=== PATIENT | female | born 1955 | race African-American/Black ===

== ENCOUNTER 2017-03-17 19:46 | Emergency (ER) | payer OTHER ==
[2015-07-03 17:03] VITALS: BP 150/78
[~2017-03-17] VITALS: Ht 157.5 cm; Wt 91.6 kg
[~2017-03-17 19:46] MED LIST: AMLO10TA2 PO; ASPI-618 PO; BACL10TA PO; METF500T4 PO; [UNRECOGNIZED DRUG - CODE] MC
[2017-03-17] MEDS ORDERED: CYCL10TA2 PO (20:08)
[2017-03-17] MEDS ORDERED: NAPR500T PO (20:08)
--- NOTE | 2017-03-17 20:08 | PHYS DOC ---
Past Medical History Past Medical History: Diabetes-Type II, Hypertension Past Surgical History: Other Additional Past Surgical Histo: colon, unknown gi Alcohol Use: None Drug Use: None Adult General Chief Complaint Chief Complaint: BACK INJURY [facility] HPI Patient is a 61 year old [female presents to the emergency department with complaints of right lower back pain. Patient states she fell one week ago and was actually doing very well for today after preparing Thanksgiving food and standing on her feet she had pain in the right lower back. Pain does not radiate. She's had no loss of bowel or bladder control, no urinary symptoms. No loss function lower extremity's. She has used no mztz-asl-ommilub medications for symptom management. Review of Systems Review of Systems Constitutional: Denies fever or chills [] Eyes: Denies change in visual acuity, redness, or eye pain [] HENT: Denies nasal congestion or sore throat [] Respiratory: Denies cough or shortness of breath [] Cardiovascular: No additional information not addressed in HPI [] GI: Denies abdominal pain, nausea, vomiting, bloody stools or diarrhea [] : Denies dysuria or hematuria [] Musculoskeletal: Low back pain Integument: Denies rash or skin lesions [] Neurologic: Denies headache, focal weakness or sensory changes [] Endocrine: Denies polyuria or polydipsia [] All other systems were reviewed and found to be within normal limits, except as documented in this note. Allergies Allergies Allergies Coded Allergies Type Severity Reaction Last Updated Verified acetaminophen Allergy Intermediate 06/24/15 Yes hydrocodone Allergy Intermediate 06/24/15 Yes Physical Exam Physical Exam Constitutional: Well developed, well nourished, no acute distress, non-toxic appearance. [] HENT: Normocephalic, atraumatic, bilateral external ears normal, oropharynx moist, no oral exudates, nose normal. [] Eyes: PERRLA, EOMI, conjunctiva normal, no discharge. [] Neck: Normal range of motion, no tenderness, supple, no stridor. [] Cardiovascular:Heart rate regular rhythm, no murmur [] Lungs & Thorax: Bilateral breath sounds clear to auscultation [] Abdomen: Bowel sounds normal, soft, no tenderness, no masses, no pulsatile masses. [] Skin: Warm, dry, no erythema, no rash. [] Back: Mild tenderness in the right lumbar paraspinous muscles without midline tenderness. Negative straight raise leg test, no saddle anesthesia Extremities: No tenderness, no cyanosis, no clubbing, ROM intact, no edema. [] Neurologic: Alert and oriented X 3, normal motor function, normal sensory function, no focal deficits noted. [] Psychologic: Affect normal, judgement normal, mood normal. [] Current Patient Data Vital Signs Vital Signs Date Time Temp Pulse Resp B/P (MAP) Pulse Ox O2 Delivery O2 Flow Rate FiO2 03/17/17 20:00 98.1 74 16 97 Room Air 98.1 EKG EKG [] Radiology/Procedures Radiology/Procedures [] Course & Med Decision Making Course & Med Decision Making Pertinent Labs and Imaging studies reviewed. (See chart for details) [] Dragon Disclaimer Dragon Disclaimer This electronic medical record was generated, in whole or in part, using a voice recognition dictation system. Departure Departure Impression: Primary Impression: Lumbar back pain Disposition: HOME, SELF-CARE Condition: STABLE Referrals: JORGE CADENA [employer] (PCP) Patient Instructions: Low Back Sprain with Rehab-SportsMed Scripts Naproxen (NAPROSYN) 500 Mg Tablet 500 MG PO BID Y for PAIN, #20 TAB Prov: WILLARD ROBLES APRN 03/17/17 Cyclobenzaprine Hcl (CYCLOBENZAPRINE HCL) 10 Mg Tablet 10 MG PO TID, #30 TAB Prov: WILLARD ROBLES APRN 03/17/17 WILLARD ROBLES APRN Mar 17, 2017 20:08
[2017-03-17] MEDS ORDERED: KETOROLAC 60 MG/2 ML INJ. IM ONE (20:30)
== END 2017-03-17 20:12 | disposition home or self-care (01) ==
LOC: ER 19:46
DX: M54.5 Low back pain (principal); E11.9 Type 2 diabetes mellitus without complications; I10 Essential (primary) hypertension; Z88.5 Allergy status to narcotic agent; Z88.6 Allergy status to analgesic agent
CPT/HCPCS: 99283

== ENCOUNTER 2021-03-12 06:33 | Emergency (ER) | payer MEDICARE, OTHER ==
[~2021-03-12] VITALS: Ht 160 cm; Wt 87.3 kg
[~2021-03-12 06:33] MED LIST changes: +AMLO-187 PO; -AMLO10TA2 PO; -ASPI-618 PO; +ASPI-964 PO; +CYCL10TA19 PO; +METF500T16 PO; -METF500T4 PO; +NAPR-683 PO
--- NOTE | 2021-03-12 07:02 | PHYS DOC ---
Past Medical History Past Medical History: Diabetes-Type II, Hypertension Past Surgical History: Other Additional Past Surgical Histo: colon, unknown gi Smoking Status: Never Smoker Alcohol Use: None Drug Use: None General Adult EDM: Chief Complaint: MECHANICAL FALL HPI: HPI: Patient is a 65 year old female with history of HTN, DM who presents with fall, neck pain, and dizziness. States last week was getting up from bed and felt dizzy and fell and hit her head and neck. Has had left-sided neck pain since. Has had dizziness that is much worse with positional changes, and does tend to get better when lying still. Saw primary care doctor, and was given a medication (unsure what), but has not helped. Denies double vision, dysarthria, weakness, numbness, difficulty swallowing, voice changes. She has felt that her gait has been unsteady at times. Review of Systems: Review of Systems: Constitutional: Denies fever or chills. [] Eyes: Denies change in visual acuity. [] HENT: Denies nasal congestion or sore throat. [] Respiratory: Denies cough or shortness of breath. [] Cardiovascular: Denies chest pain or edema. [] GI: Denies abdominal pain, nausea, vomiting, bloody stools or diarrhea. [] : Denies dysuria. [] Musculoskeletal: Reports neck pain. Denies back pain or joint pain. [] Integument: Denies rash. [] Neurologic: Reports dizziness, focal weakness or sensory changes. [] Endocrine: Denies polyuria or polydipsia. [] Lymphatic: Denies swollen glands. [] Psychiatric: Denies depression or anxiety. [] Heart Score: C/O Chest Pain: No Risk Factors: Risk Factors: DM, Current or recent (<one month) smoker, HTN, HLP, family history of CAD, obesity. Risk Scores: Score 0 - 3: 2.5% MACE over next 6 weeks - Discharge Home Score 4 - 6: 20.3% MACE over next 6 weeks - Admit for Clinical Observation Score 7 - 10: 72.7% MACE over next 6 weeks - Early Invasive Strategies Allergies: Allergies: Allergies Coded Allergies Type Severity Reaction Last Updated Verified acetaminophen Allergy Intermediate 06/24/15 Yes hydrocodone Allergy Intermediate 06/24/15 Yes Physical Exam: PE: Constitutional: Well developed, well nourished HENT: Normocephalic, atraumatic, Eyes: Pupils equal, round, reactive. Patient has very delayed tracking in all directions of extraocular movements, but they do appear to be grossly intact. Neck: + Midline or left-sided tenderness to palpation Cardiovascular:Heart rate regular rhythm, no murmur [] Lungs & Thorax: Left chest wall tenderness to palpation, left clavicular tenderness to palpation. Breath sounds clear bilaterally. Abdomen: Bowel sounds normal, soft, no tenderness, no masses, no pulsatile masses. [] Skin: Warm, dry, no erythema, no rash. [] Back: No tenderness, no CVA tenderness. [] Extremities: No tenderness, no cyanosis, no clubbing, ROM intact, no edema. [] Neurologic: Alert, oriented to person, place, time. Speech fluent. Face symmetric. Extraocular movements are very slow to track. Reports dizziness with tracking. No discernible nystagmus during exam. 5/5 strength in major muscle groups of upper and lower extremities without upper extremity ataxia with [id number] testing. Head impulse testing, [place]lick[place]-Hallpike deferred until after imaging given her neck symptoms. Psychologic: Affect normal, judgement normal, mood normal. [] EKG: EKG: Appears sinus. Machine read as flutter. Rate 80. Normal axis. DE<200. Tele: shows clear sinus rhythm. Radiology/Procedures: Radiology/Procedures: [][facility] [address] [place] [address] IMAGING REPORT Signed PATIENT: EVER FERNANDEZ ACCOUNT: [id number] : 1955 LOCATION: ER AGE: 65 SEX: F EXAM STATUS: REG ER ORD. PHYSICIAN: ELIF MONTERO MD REASON: vertigo, fall, L sided neck pain PROCEDURE: CT HEAD AND CERVICAL SPINE WO EXAM: Head and cervical spine CT without contrast. HISTORY: Vertigo. Fall. Left-sided neck pain. TECHNIQUE: Computed tomographic images of the head and cervical spine were obtained without contrast. *One or more of the following individualized dose reduction techniques were utilized for this examination: 1. Automated exposure control. 2. Adjustment of the mA and/or kV according to patient size. 3. Use of iterative reconstruction technique. COMPARISON: None. FINDINGS: Head: There is no hemorrhage. There is no mass effect or midline shift. There is no hydrocephalus. There is mild age-appropriate cerebral volume loss. There is decreased attenuation within the cerebral white matter, likely due to chronic small vessel disease. There is evidence of left lens surgery. The paranasal sinuses mastoid air cells are unremarkable. There is no suspicious or acute calvarial finding. Cervical spine: There is mild multilevel degenerative listhesis. There is multilevel endplate remodeling and anterior predominant spurring. There is chronic mild decreased vertebral body height at multiple levels. There is no acute or subacute fracture. The facet joints are intact. There is no suspicious osseous lesion. There are mild disc bulges and shallow disc protrusions at multiple levels. There is no significant foraminal or central canal stenosis. IMPRESSION: 1. No acute intracranial finding or evidence of acute cervical spine trauma. 2. Bilateral cerebral white matter changes, likely due to chronic small vessel disease. 3. Degenerative change involving the cervical spine, described above. Electronically signed by: Karis James MD (03/12/2021 9:28 AM) [id number] DICTATED and SIGNED BY: KARIS JAMES MD DATE: 03/12/21 [id number] Impression: [facility] [address] [place] [address] IMAGING REPORT Signed PATIENT: EVER FERNANDEZ ACCOUNT: [id number] : 1955 LOCATION: ER AGE: 65 SEX: F EXAM STATUS: REG ER ORD. PHYSICIAN: ELIF MONTERO MD REASON: vertigo, fall, L sided neck pain PROCEDURE: CT CHEST WO CONTRAST EXAM: Chest CT without intravenous contrast. HISTORY: Vertigo. Fall. Chest pain. TECHNIQUE: Computed tomographic images of the chest were obtained without contrast. Multiplanar reformatting was performed. *One or more of the following individualized dose reduction techniques were utilized for this examination: 1. Automated exposure control. 2. Adjustment of the mA and/or kV according to patient size. 3. Use of iterative reconstruction technique. COMPARISON: None. FINDINGS: The heart is normal in size. The thoracic aorta is normal in caliber. There is no evidence of traumatic mediastinal injury. There is no lymphade nopathy. There is no pneumothorax or pleural effusion. There is no infiltrate. There is a calcified granuloma within the left upper lobe. There is no suspicious pulmonary nodule. There is moderate right acromioclavicular joint and mild right glenohumeral joint osteoarthritis. There are degenerative changes involving the spine, including bridging and partially bridging anterior osteophytes at the majority of the thoracic levels. There is no acute fracture. There is hepatosplenomegaly and hepatic steatosis. The gallbladder is surgically absent. There is colonic diverticulosis. There is no acute finding involving the upper abdomen. IMPRESSION: 1. No acute thoracic or upper abdominal finding. 2. Hepatosplenomegaly and hepatic steatosis. 3. Colonic diverticulosis. Electronically signed by: Karis James MD (03/12/2021 9:35 AM) [id number] DICTATED and SIGNED BY: KARIS JAMES MD DATE: 03/12/21 [id number] Course & Med Decision Making: Course & Med Decision Making Pertinent Labs and Imaging studies reviewed. (See chart for details) Patient is 65-year-old female who presents with dizziness, fall, neck pain. Dizziness has been present for approximately a week. Does appear to be positi onal and the dizziness sounds more peripheral in description. However, full vertigo physical exam was not able to be done due to neck pain and concern for potential traumatic injury. However, she does complain of left-sided neck pain and worsening dizziness since the fall, raising concern for a vertebral artery dissection. Chest wall on the left and left clavicle also tender to palpation. CT imaging of the head and neck, CT angio, and CT chest obtained. 0702 CT scans without acute findings. Of note, CTA was not able to be obtained due to infiltration. On reevaluation, Klickitat-Hallpike is positive on the left and nystagmus does appear to be distinguishable, correlating with peripheral vertigo. Immanuel maneuver attempted, and patient is reporting improved symptoms. Was able to ambulate in the escobar steadily, without recurrent vertigo. Feel she is safe for discharge at this time with PCP follow-up. Return precautions discussed for continuous vertigo symptoms, or if she is not feeling safe at home. Patient agreeable with plan. [id number] Ravi Disclaimer: Ravi Disclaimer: This electronic medical record was generated, in whole or in part, using a voice recognition dictation system. Departure Departure Impression: Primary Impression: Peripheral vertigo involving left ear Disposition: HOME / SELF CARE / HOMELESS Condition: STABLE Referrals: JORGE CADENA (PCP) Schedule a follow up appointment. Patient Instructions: Benign Positional Vertigo Additional Instructions: Please schedule follow-up appointment with your primary care doctor. If your vertigo becomes constant/continuous, you have speech difficulty, double vision, coordination difficulty, or other new/concerning symptoms please return to the emergency department. If you feel like you are unsafe to care for yourself at home please return to the emergency department. ELIF MONTERO MD Mar 12, 2021 07:02
--- NOTE | 2021-03-12 07:27 | EKG ---
[facility] [address] [place] [address] Test Date: 2021-03-12 Test Time: 06:42:47 Pat Name: EVER FERNANDEZ Department: Room: Gender: F Research Program Assistant: : 1955 Requested By: ELIF MONTERO Order Number: [id number] Reading MD: Roosevelt Dove Measurements Intervals [place] Rate: 80 P: NM: QRS: 39 QRSD: 88 T: 114 QT: 356 QTc: 414 Interpretive Statements SINUS RHYTHM T ABNORMALITY IN HIGH LATERAL LEADS Electronically Signed On 03-15-2021 9:23:50 WOOD MILLING MACHINE HAND by Roosevelt Dove
[2021-03-12 08:28] LABS: BASO % 1 % (0-3); EOS # 0.2 x10^3/uL (0.0-0.7); EOS % 4 % (0-3); HEMATOCRIT 39.5 % (36.0-47.0); HEMOGLOBIN 13.6 g/dL (12.0-15.5); LYMPH # 1.3 x10^3/uL (1.0-4.8); LYMPH % 25 % (24-48); MEAN CORPUSCULAR HEMOGLOBIN 32 pg (25-35); MEAN CORPUSCULAR HGB CONC 34 g/dL (31-37); MEAN CORPUSCULAR VOLUME 92 fL (79-100); MONO # 0.4 x10^3/uL (0.0-1.1); MONO % 7 % (0-9); NEUT # 3.5 x10^3/uL (1.8-7.7); NEUT % 64 % (31-73); PLATELET COUNT 181 x10^3/uL (140-400); RED BLOOD COUNT 4.29 x10^6/uL (3.50-5.40); RED CELL DISTRIBUTION WIDTH 13.1 % (11.5-14.5); WHITE BLOOD COUNT 5.5 x10^3/uL (4.0-11.0)
[2021-03-12 08:30] VITALS: BP 182/90
[2021-03-12 08:36] LABS: CALCIUM 8.8 mg/dL (8.5-10.1); CREATININE 0.7 mg/dL (0.6-1.0); GFR 102.3; MAGNESIUM 2.2 mg/dL (1.8-2.4); POTASSIUM 4.6 mmol/L (3.5-5.1)
[2021-03-12] MEDS ORDERED: CONTRAST GIVEN. MC PRN (08:45)
[2021-03-12] MEDS ORDERED: IOHEXOL 300 MG/ML 100ML VIAL. IV ONE (08:45)
--- NOTE | 2021-03-12 09:30 | RAD ---
EXAM: Head and cervical spine CT without contrast. HISTORY: Vertigo. Fall. Left-sided neck pain. TECHNIQUE: Computed tomographic images of the head and cervical spine were obtained without contrast. *One or more of the following individualized dose reduction techniques were utilized for this examina tion: 1. Automated exposure control. 2. Adjustment of the mA and/or kV according to patient size. 3. Use of iterative reconstruction technique. COMPARISON: None. FINDINGS: Head: There is no hemorrhage. There is no mass effect or midline shift. There is no hydrocephalus. Th ere is mild age-appropriate cerebral volume loss. There is decreased attenuation within the cerebral white matter, likely due to chronic small vessel disease. There is evidence of left lens surgery. The paranasal sinuses mastoid air cells are unremarkable. There is no suspicious or acute calvarial find ing. Cervical spine: There is mild multilevel degenerative listhesis. There is multilevel endplate remodel ing and anterior predominant spurring. There is chronic mild decreased vertebral body height at multi ple levels. There is no acute or subacute fracture. The facet joints are intact. There is no suspicio us osseous lesion. There are mild disc bulges and shallow disc protrusions at multiple levels. There is no significant foraminal or central canal stenosis. IMPRESSION: 1. No acute intracranial finding or evidence of acute cervical spine trauma. 2. Bilateral cerebral white matter changes, likely due to chronic small vessel disease. 3. Degenerative change involving the cervical spine, described above. Electronically signed by: Karis Gaxiola MD (03/12/2021 9:28 AM) [id number]
--- NOTE | 2021-03-12 09:37 | RAD ---
EXAM: Chest CT without intravenous contrast. HISTORY: Vertigo. Fall. Chest pain. TECHNIQUE: Computed tomographic images of the chest were obtained without contrast. Multiplanar refor matting was performed. *One or more of the following individualized dose reduction techniques were utilized for this examina tion: 1. Automated exposure control. 2. Adjustment of the mA and/or kV according to patient size. 3. Use of iterative reconstruction technique. COMPARISON: None. FINDINGS: The heart is normal in size. The thoracic aorta is normal in caliber. There is no evidence of traumatic mediastinal injury. There is no lymphadenopathy. There is no pneumothorax or pleural eff usion. There is no infiltrate. There is a calcified granuloma within the left upper lobe. There is no suspicious pulmonary nodule. There is moderate right acromioclavicular joint and mild right glenohumeral joint osteoarthritis. The re are degenerative changes involving the spine, including bridging and partially bridging anterior o steophytes at the majority of the thoracic levels. There is no acute fracture. There is hepatosplenomegaly and hepatic steatosis. The gallbladder is surgically absent. There is col onic diverticulosis. There is no acute finding involving the upper abdomen. IMPRESSION: 1. No acute thoracic or upper abdominal finding. 2. Hepatosplenomegaly and hepatic steatosis. 3. Colonic diverticulosis. Electronically signed by: Karis Gaxiola MD (03/12/2021 9:35 AM) [id number]
== END 2021-03-12 10:37 | disposition home or self-care (01) ==
LOC: ER 06:33
DX: H81.392 Other peripheral vertigo, left ear (principal); M54.2 Cervicalgia; R07.89 Other chest pain; E11.9 Type 2 diabetes mellitus without complications; I10 Essential (primary) hypertension; Z88.6 Allergy status to analgesic agent; Z88.5 Allergy status to narcotic agent; W18.09XA Striking against other object with subsequent fall, initial encounter; Y93.89 Activity, other specified; Y92.89 Other specified places as the place of occurrence of the external cause; Y99.8 Other external cause status
CPT/HCPCS: 36415; 70450; 71250; 72125; 80048; 83735; 85025; 93005; 99285

== ENCOUNTER 2021-04-12 05:30 | Emergency (ER) | payer MEDICARE ==
[~2021-04-12] VITALS: Ht 160 cm; Wt 88.2 kg
[2021-04-12] MEDS ORDERED: TRAM50TA PO (05:55)
--- NOTE | 2021-04-12 05:56 | PHYS DOC ---
Past Medical History Past Medical History: Diabetes-Type II, Hypertension Past Surgical History: Other Additional Past Surgical Histo: colon, unknown gi Smoking Status: Never Smoker Alcohol Use: None Drug Use: None General Adult EDM: Chief Complaint: HAND PROBLEM HPI: HPI: 66-year-old female presents with report of right wrist pain and numbness which has been ongoing for the past 45 days. Patient reports feels stiff especially this morning. Patient reports some numbness primarily to her fourth and fifth digit. Denies trauma. Denies fever or chills. Denies rash. Denies swelling. Review of Systems: Review of Systems: Constitutional: Denies fever or chills Eyes: Denies redness or eye pain HENT: Denies nasal congestion or sore throat Respiratory: Denies cough or shortness of breath Cardiovascular: Denies chest pain or palpitations GI: Denies abdominal pain, nausea, or vomiting : Denies dysuria or hematuria Musculoskeletal: Denies back pain; reports right wrist pain Integument: Denies rash or skin lesions Neurologic: Denies headache or focal weakness; reports right fourth and fifth finger numbness Complete systems were reviewed and found to be within normal limits, except as documented in this note. Heart Score: C/O Chest Pain: N/A Current Medications: Current Medications Medications (Trade) Dose Ordered Sig/Svetlana Start Time Stop Time Status Last Admin Dose Admin Dexamethasone (Decadron) 10 mg 1X ONCE 04/12/21 06:00 04/12/21 06:01 Allergies: Allergies: Allergies Coded Allergies Type Severity Reaction Last Updated Verified acetaminophen Allergy Intermediate 06/24/15 Yes hydrocodone Allergy Intermediate 06/24/15 Yes Physical Exam: PE: Constitutional: Well developed, well nourished, no acute distress, non-toxic appearance HENT: Normocephalic, atraumatic Eyes: Conjunctiva normal, no discharge Neck: Normal range of motion, supple Lungs & Thorax: No respiratory distress, equal chest rise and fall Skin: Warm, dry, no erythema, no rash Extremities: Tenderness to flexor retinaculum of right wrist, ROM limited with flexion of wrist, no deformity, right radial pulse +2, positive Phalen's and Tinel's sign on right Neurologic: Alert and oriented X 3, no focal deficits noted Psychologic: Affect normal, judgment normal EKG: EKG: [] Radiology/Procedures: Radiology/Procedures: [] Course & Med Decision Making: Course & Med Decision Making Patient presents with HPI and physical exam concerning for carpal tunnel of right wrist. Symptomatic treatment provided with ice pack. One-time dose of oral steroid also provided. Pain addressed. Splint applied. Patient stable for discharge with outpatient follow-up with PCP/orthopedics. Orthopedic referral provided. Discussed findings and plan with patient and family, who acknowledge understanding and agreement. Ravi Disclaimer: Ravi Disclaimer: This electronic medical record was generated, in whole or in part, using a voice recognition dictation system. Splinting Splinting : Location: Right wrist Pre-Made Type: velcro ([place] wrist splint) Pre-Proc Neuro Vasc Exam: normal Post-Proc Neuro Vasc Exam: normal, unchanged from pre-exam Departure Departure Impression: Primary Impression: Carpal tunnel syndrome, right Disposition: HOME / SELF CARE / HOMELESS Condition: STABLE Referrals: RAJIV ESTEVEZ APRN (PCP) MARCO ANTONIO MUELLER Jr. DO Patient Instructions: Carpal Tunnel Syndrome, Govm-db-Kfho, Wrist Splint, Vwqx-he-Nvif Additional Instructions: Ice area of discomfort 20 minutes on then leave off for next 20 minutes. Repeat several times daily for the next few days. May also use kwzd-[id number]-[id number] ibuprofen and or Tylenol for pain or discomfort. Scripts Tramadol Hcl (TRAMADOL HCL) 50 Mg Tablet 50 MG PO Q6HRS PRN for PAIN, #14 TAB Prov: LSIA CABRAL DO 04/12/21 LISA CABRAL DO Apr 12, 2021 05:56
[2021-04-12] MEDS ORDERED: DEXAMETHASONE 4 MG TABLET PO ONE (06:00)
[2021-04-12 06:02] VITALS: BP 145/73
[2021-04-12] MEDS ORDERED: traMADol 50 MG TABLET PO ONE (06:30)
== END 2021-04-12 06:09 | disposition home or self-care (01) ==
LOC: ER 05:57
DX: G56.01 Carpal tunnel syndrome, right upper limb (principal); R20.0 Anesthesia of skin; E11.9 Type 2 diabetes mellitus without complications; I10 Essential (primary) hypertension
CPT/HCPCS: 29125; 99283

== ENCOUNTER 2021-06-05 08:26 | Day surgery (SDC) | payer MEDICARE ==
[~2021-06-05] VITALS: Ht 157.5 cm; Wt 90.0 kg
[~2021-06-05 08:26] MED LIST changes: +HYDROmorphone 2 MG/ML INJ. IVP PRN; +IV RINGERS,LACTATED 1000ML 1,000 ML IV SCH; +MORPHINE SULFATE 2 MG/ML INJ. IVP PRN; +PROCHLORPERAZINE 10 MG/2 ML VIAL. IVP PRN; +TRAM50TA PO; +fentaNYL PF VIAL 100 MCG/2 ML VIAL IVP PRN
[2021-06-05 09:10] VITALS: BP 166/76
[2021-06-05] MEDS: INSULIN LISPRO 100 UNIT/ML 3ML VIAL for OP,RR ONLY. SQ PRN ×2 (09:43→12:52)
[2021-06-05] MEDS ORDERED: PROPOFOL 10 MG/ML (20ML) VIAL. IV ONE (10:29)
[2021-06-05] MEDS ORDERED: fentaNYL PF VIAL 100 MCG/2 ML VIAL ONE (10:29)
[2021-06-05] MEDS ORDERED: ONDANSETRON PF 4 MG/2 ML VIAL. ONE (10:39)
[2021-06-05] MEDS ORDERED: DEXAMETHASONE SOD PHOS 4 MG/ML VIAL ONE (10:39)
[2021-06-05] MEDS ORDERED: TRAM50TA PO (10:57)
--- NOTE | 2021-06-05 10:59 | DISCH ---
DISCHARGE INSTRUCTIONS Condition on Discharge Condition on Discharge: Stable Activity After Discharge Activity Instructions for Disc: Activity as tolerated, Avoid exertion Bathing Instructions: No Tub Bath until see Lifting Instructions after Dis: No heavy lifting, No pulling or pushing, Do not lift >10 pounds Driving Instructions after Dis: Do not drive today Wound Incision Care Wound/Incision Care: Keep wound elevated, May get incision wet Other wound/incision instructi: May change dressing postoperative day #3 Follow-Up Follow up with: Dr. Mueller in 10 to 14 days MARCO ANTONIO MUELLER Jr. DO Jun 05, 2021 10:59
[2021-06-05] MEDS ORDERED: BUPIVACAINE MPF 0.25% 30 ML VIAL. ONE (11:15)
--- NOTE | 2021-06-05 12:21 | PDOC4 ---
OPERATIVE NOTE Date: Date: Jun 05, 2021 Pre-Op Diagnosis: Trigger finger right ring finger Post-Op Diagnosis: Same Procedure Performed: Right trigger finger release ring finger A1 itzel Surgeon: Debra Anesthesia Type: Local with IV sedation Blood Loss: Less than 5 cc Specimans Obtained: None Findings: See dictation Complications: None MARCO ANTONIO MUELLER Jr. DO Jun 05, 2021 12:21
--- NOTE | 2021-06-05 12:51 | OP ---
DATE OF SURGERY: 06/05/2021 PREOPERATIVE DIAGNOSIS: Trigger finger, right ring finger. POSTOPERATIVE DIAGNOSIS: Trigger finger, right ring finger. PROCEDURE: Release trigger finger, right ring finger. SURGEON: Ubaldo Richardson Jr, DO. ANIMAL CONTROL SUPERVISOR: Otis Hauser. ANESTHESIA: Local with IV sedation. COMPLICATIONS: None. ESTIMATED BLOOD LOSS: 5 mL. DESCRIPTION OF PROCEDURE: The patient was taken to the operative suite, given a local anesthetic. After the right upper extremity was prepped and draped in a sterile fashion, Esmarch was placed on the forearm. The incision was made through skin and subcutaneous tissues directly over the area of the A1 itzel. This was then identified and released in its entirety. The underlying tendons were completely intact and fully released. The wound was then thoroughly irrigated and reapproximated using 3-0 nylon in an interrupted fashion. Sterile dressing was applied. The patient was then taken from the operative bed to the postoperative bed, taken to the PACU in stable condition. KENNY DR: Ishmael TID: [id number]
[2021-06-05 13:00] VITALS: BP 130/78
[2021-06-05] MEDS ORDERED: INSULIN LISPRO 100 UNIT/ML 3ML VIAL for OP,RR ONLY. SQ ONE ×2 (13:00)
[2021-06-05] MEDS ORDERED: traMADol 50 MG TABLET PO ONE (13:15)
== END 2021-06-05 13:50 | disposition home or self-care (01) ==
LOC: SURG 08:26
PROVIDERS: ATTEND Orthopaedic Surgery
DX: M65.341 Trigger finger, right ring finger (principal); I10 Essential (primary) hypertension; E11.9 Type 2 diabetes mellitus without complications; M19.90 Unspecified osteoarthritis, unspecified site; Z90.49 Acquired absence of other specified parts of digestive tract; Z90.710 Acquired absence of both cervix and uterus; Z98.890 Other specified postprocedural states; Z79.82 Long term (current) use of aspirin; Z79.84 Long term (current) use of oral hypoglycemic drugs; Z79.899 Other long term (current) drug therapy; Z88.8 Allergy status to other drugs, medicaments and biological substances
CPT/HCPCS: 26055; 82962; A4930; A6402; A6449; J0690; J1100; J1815; J2405; J2704; J3010; J3490; A4657; A6452

== ENCOUNTER 2021-07-20 08:39 | Emergency (ER) | payer MEDICARE ==
[~2021-07-20] VITALS: Ht 162.6 cm; Wt 87.3 kg
[~2021-07-20 08:39] MED LIST changes: -HYDROmorphone 2 MG/ML INJ. IVP PRN; -IV RINGERS,LACTATED 1000ML 1,000 ML IV SCH; -MORPHINE SULFATE 2 MG/ML INJ. IVP PRN; -PROCHLORPERAZINE 10 MG/2 ML VIAL. IVP PRN; -fentaNYL PF VIAL 100 MCG/2 ML VIAL IVP PRN
--- NOTE | 2021-07-20 09:26 | PHYS DOC ---
Past Medical History Past Medical History: Diabetes-Type II, Hypertension Past Surgical History: Other Additional Past Surgical Histo: colon, unknown gi Smoking Status: Never Smoker Alcohol Use: None Drug Use: None General Adult EDM: Chief Complaint: FLANK PAIN HPI: HPI: Patient is a 66-year-old female that presents today with right flank pain. Patient states the pain has been ongoing for approximately 3 weeks, she says that is progressively gotten worse over that time. Patient denies chest pain, shortness of breath, nausea, vomiting, heartburn, diarrhea, fever, chills, painful urination, or frequency in urination. Patient does believe that she has had her gallbladder removed in the past, she does not have any history of any kidney issues or renal stones. Review of Systems: Review of Systems: Constitutional: Denies fever or chills. [] Eyes: Denies change in visual acuity. [] HENT: Denies nasal congestion or sore throat. [] Respiratory: Denies cough or shortness of breath. [] Cardiovascular: Denies chest pain or edema. [] GI: Right flank pain denies abdominal pain, nausea, vomiting, bloody stools or diarrhea. [] : Denies dysuria. [] Musculoskeletal: Denies back pain or joint pain. [] Integument: Denies rash. [] Neurologic: Denies headache, focal weakness or sensory changes. [] Endocrine: Denies polyuria or polydipsia. [] Lymphatic: Denies swollen glands. [] Psychiatric: Denies depression or anxiety. [] Heart Score: C/O Chest Pain: No Risk Factors: Risk Factors: DM, Current or recent (<one month) smoker, HTN, HLP, family history of CAD, obesity. Risk Scores: Score 0 - 3: 2.5% MACE over next 6 weeks - Discharge Home Score 4 - 6: 20.3% MACE over next 6 weeks - Admit for Clinical Observation Score 7 - 10: 72.7% MACE over next 6 weeks - Early Invasive Strategies Allergies: Allergies: Allergies Coded Allergies Type Severity Reaction Last Updated Verified acetaminophen Allergy Intermediate 06/05/21 Yes hydrocodone Allergy Intermediate 06/05/21 Yes Physical Exam: PE: Constitutional: Well developed, well nourished, no acute distress, non-toxic appearance. [] HENT: Normocephalic, atraumatic, bilateral external ears normal, oropharynx moist, no oral exudates, nose normal. [] Eyes: PERRLA, EOMI, conjunctiva normal, no discharge. [] Neck: Normal range of motion, no tenderness, supple, no stridor. [] Cardiovascular:Heart rate regular rhythm, no murmur [] Lungs & Thorax: Bilateral breath sounds clear to auscultation [] Abdomen: Bowel sounds normal, soft, no tenderness, no masses, no pulsatile masses. [] Skin: Warm, dry, no erythema, no rash. [] Back: No tenderness, right CVA tenderness. [] Extremities: No tenderness, no cyanosis, no clubbing, ROM intact, no edema. [] Neurologic: Alert and oriented X 3, normal motor function, normal sensory function, no focal deficits noted. [] Psychologic: Affect normal, judgement normal, mood normal. [] Current Patient Data: Labs: Laboratory Tests Test 07/20/21 08:54 07/20/21 10:00 Urine Collection Type Unknown Urine Color (Auto) Yellow Urine Turbidity Hazy Urine pH (Auto) 6.0 Urine Specific [place] 1.022 Urine Protein (Auto) Negative mg/dL Urine Glucose (Auto)(UA) Negative mg/dL Urine Ketones (Auto) Negative mg/dL Urine Blood (Auto) Negative Urine Nitrite Negative Urine Bilirubin (Auto) Negative Urine Urobilinogen (Auto) Normal mg/dL Urine Leukocyte Esterase (Auto) Negative Urine RBC Rare /HPF Urine WBC 5-10 /HPF Urine Squamous Epithelial Cells Many /LPF Urine Bacteria Many /HPF Urine Mucus Slight /LPF Urine Yeast Present /HPF White Blood Count 5.4 x10^3/uL Red Blood Count 4.67 x10^6/uL Hemoglobin 14.2 g/dL Hematocrit 42.5 % Mean Corpuscular Volume 91 fL Mean Corpuscular Hemoglobin 31 pg Mean Corpuscular Hemoglobin Concent 34 g/dL Red Cell Distribution Width 13.6 % Platelet Count 174 x10^3/uL Neutrophils (%) (Auto) 64 % Lymphocytes (%) (Auto) 26 % Monocytes (%) (Auto) 8 % Eosinophils (%) (Auto) 2 % Basophils (%) (Auto) 1 % Neutrophils # (Auto) 3.4 x10^3/uL Lymphocytes # (Auto) 1.4 x10^3/uL Monocytes # (Auto) 0.4 x10^3/uL Eosinophils # (Auto) 0.1 x10^3/uL Basophils # (Auto) 0.0 x10^3/uL Sodium Level 145 mmol/L Potassium Level 4.1 mmol/L Chloride Level 105 mmol/L Carbon Dioxide Level 29 mmol/L Anion Gap 11 Blood Urea Nitrogen 9 mg/dL Creatinine 0.7 mg/dL Estimated GFR (Cockcroft-Gault) 101.9 BUN/Creatinine Ratio 13 Glucose Level 151 mg/dL Calcium Level 9.0 mg/dL Total Bilirubin 0.7 mg/dL Aspartate Amino Transf (AST/SGOT) 17 U/L Alanine Aminotransferase (ALT/SGPT) 26 U/L Alkaline Phosphatase 100 U/L Troponin I High Sensitivity 5 ng/L Total Protein 7.3 g/dL Albumin 3.6 g/dL Albumin/Globulin Ratio 1.0 Lipase 492 U/L Current Medications Medications (Trade) Dose Ordered Sig/Svetlana Route PRN Reason Start Time Stop Time Status Last Admin Dose Admin Sodium Chloride 1,000 ml @ 999 mls/hr 1X ONCE IV 07/20/21 09:30 07/20/21 10:30 DC 07/20/21 10:05 Iohexol (Omnipaque 300 Mg/ml) 75 ml 1X ONCE IV 07/20/21 11:00 07/20/21 11:01 DC 07/20/21 10:59 Info (CONTRAST GIVEN -- Rx MONITORING) 1 each PRN DAILY PRN MC SEE COMMENTS 07/20/21 11:00 07/22/21 10:59 Vital Signs: Vital Signs Date Time Temp Pulse Resp B/P (MAP) Pulse Ox O2 Delivery O2 Flow Rate FiO2 07/20/21 11:03 84 16 173/79 (110) 99 Room Air 07/20/21 10:25 65 12 164/70 (101) 97 Room Air 07/20/21 10:05 69 15 185/75 (111) 99 Room Air 07/20/21 09:30 83 17 99 Room Air 07/20/21 08:58 98.0 82 20 171/83 (112) 100 Room Air 98.0 EKG: EKG: [] Radiology/Procedures: Radiology/Procedures: [REASON: right side chest/ flank pain PROCEDURE: CT CHEST ABD PELVIS W/CONTRAST CT scan of the chest, abdomen and pelvis with contrast 07/20/2021 CLINICAL HISTORY: Right-sided chest and flank pain. TECHNIQUE: After the intravenous administration of 75 cc of Omnipaque 300 only, contiguous, 0.625 mm axial sections were obtained through the chest, abdomen and pelvis. 5 mm reconstructed axial and 5 mm sagittal and coronal reconstructed images were obtained. One or more of the following individualized dose reduction techniques were utilized for this study: 1. Automated exposure control. 2. Adjustment of the mA and/or kV according to patient size. 3. Use of iterative reconstruction technique. FINDINGS: Comparison is made to a CT scan of the chest dated 03/12/2021. Additional comparison is made to a CT scan abdomen and pelvis dated 06/20/2015. Atherosclerotic calcification of the thoracic aorta and its branches is seen. The thoracic aorta is mildly tortuous but tapers normally. The heart is normal in size. Small calcified left hilar lymph node is noted. No mediastinal hematoma is seen. A 7 mm calcified granuloma seen involving the left upper lobe. No area of consolidation is seen. No pneumothorax or pleural effusion is noted. The liver parenchyma has a decreased attenuation consistent with fatty infiltration. The spleen, pancreas, adrenal glands and kidneys are within normal limits. Atherosclerotic calcification abdominal aorta is seen. The abdominal aorta tapers normally. Surgical clips are seen within the gallbladder fossa consistent with cholecystectomy. Free fluid or free air is seen within the abdomen. There is no evidence of bowel obstruction. Images through the pelvis demonstrate the urinary bladder distended with urine. No free fluid is seen. No pelvic hematoma is noted. Very mild S-shaped curvature of the thoracic and lumbar spine is seen. Degenerative changes are seen involving the thoracic and lumbar spine. The osseous structures are intact. IMPRESSION: No acute abnormality is seen. Electronically signed by: Gilbert Saldana MD (07/20/2021 11:59 AM) [id number]] Course & Med Decision Making: Course & Med Decision Making Pertinent Labs and Imaging studies reviewed. (See chart for details) 1230 reviewed radiological and laboratory work-up results with patient, did inform her that her radiological results did not show any acute findings, her labs did show a urinary tract infection with with yeast noted in the urine, did confer with Dr. Che she recommended treating the patient with cephalexin and Diflucan for urinary tract infection. Patient is to follow-up with her primary care physician at [facility] Dr. Caro in the next 3 to 5 days, or return here to the emergency department if she has increased pain, increased work of breathing, chest pain, increased abdominal pain, or development of a fever. Patient verbalized understanding is agreeable with the plan of care. [place] Disclaimer: Ravi Disclaimer: This electronic medical record was generated, in whole or in part, using a voice recognition dictation system. Departure Departure Impression: Primary Impression: Abdominal pain Qualified Codes: R10.11 - Right upper quadrant pain Additional Impressions: UTI (urinary tract infection) Qualified Codes: N30.00 - Acute cystitis without hematuria Yeast infection Disposition: HOME / SELF CARE / HOMELESS Condition: STABLE Referrals: UNKNOWN PCP NAME (PCP) Patient Instructions: Abdominal Pain, Urinary Tract Infection Additional Instructions: Diflucan take 1 tablet today and then take the other tablet after you are finished your course of antibiotics for the yeast infection Cephalexin take 1 tablet 3 times daily for 7 days Increase by mouth fluids Ultram take 1 tablet every 6 hours as needed for severe pain, use with caution may cause drowsiness and constipation Follow-up with Dr. Caro at the [facility] in the next 3 to 5 days if your pain is not improved Return to the emergency department for increased abdominal pain, increased shortness of breath, chest pain, development of a fever. Scripts Tramadol Hcl (ULTRAM) 50 Mg Tablet 1 TAB PO PRN Q6HRS PRN for pain MDD 4 Tablet(s), #14 TAB 0 Refills Prov: GLORIA BRICE [employer] 07/20/21 Fluconazole (DIFLUCAN) 150 Mg Tablet 1 TAB PO UD, #2 TAB 1 Refill Prov: GLORIA BRICE [employer] 07/20/21 Cephalexin (CEPHALEXIN) 500 Mg Tablet 1 CAP PO TID for 7 Days, #21 CAP Prov: GLORIA BRICE [employer] 07/20/21 GLORIA BRICE APRN Jul 20, 2021 09:26
[2021-07-20 09:43] LABS: BACTERIA,URINE MANY /HPF (0-FEW); YEAST,URINE PRESENT /HPF
[2021-07-20 09:44] LABS: RBC,URINE RARE /HPF (0-2)
[2021-07-20] MEDS: IV NORMAL SALINE 1000ML BAG 1,000 ML IV ONE (10:05)
[2021-07-20 10:30] LABS: ALBUMIN 3.6 g/dL (3.4-5.0); CREATININE 0.7 mg/dL (0.6-1.0); GFR 101.9; POTASSIUM 4.1 mmol/L (3.5-5.1); TOTAL BILIRUBIN 0.7 mg/dL (0.2-1.0); TOTAL PROTEIN 7.3 g/dL (6.4-8.2)
[2021-07-20 10:32] LABS: BASO % 1 % (0-3); EOS # 0.1 x10^3/uL (0.0-0.7); EOS % 2 % (0-3); HEMATOCRIT 42.5 % (36.0-47.0); HEMOGLOBIN 14.2 g/dL (12.0-15.5); LYMPH # 1.4 x10^3/uL (1.0-4.8); LYMPH % 26 % (24-48); MEAN CORPUSCULAR HEMOGLOBIN 31 pg (25-35); MEAN CORPUSCULAR HGB CONC 34 g/dL (31-37); MEAN CORPUSCULAR VOLUME 91 fL (79-100); MONO # 0.4 x10^3/uL (0.0-1.1); MONO % 8 % (0-9); NEUT # 3.4 x10^3/uL (1.8-7.7); NEUT % 64 % (31-73); PLATELET COUNT 174 x10^3/uL (140-400); RED BLOOD COUNT 4.67 x10^6/uL (3.50-5.40); RED CELL DISTRIBUTION WIDTH 13.6 % (11.5-14.5); WHITE BLOOD COUNT 5.4 x10^3/uL (4.0-11.0)
[2021-07-20] MEDS: IOHEXOL 300 MG/ML 100ML VIAL. IV ONE (10:59)
[2021-07-20] MEDS ORDERED: CONTRAST GIVEN. MC PRN (11:00)
--- NOTE | 2021-07-20 12:01 | RAD ---
CT scan of the chest, abdomen and pelvis with contrast 07/20/2021 CLINICAL HISTORY: Right-sided chest and flank pain. TECHNIQUE: After the intravenous administration of 75 cc of Omnipaque 300 only, contiguous, 0.625 mm axial sections were obtained through the chest, abdomen and pelvis. 5 mm reconstructed axial and 5 mm sagittal and coronal reconstructed images were obtained. One or more of the following individualized dose reduction techniques were utilized for this study: 1. Automated exposure control. 2. Adjustment of the mA and/or kV according to patient size. 3. Use of iterative reconstruction technique. FINDINGS: Comparison is made to a CT scan of the chest dated 03/12/2021. Additional comparison is mad e to a CT scan abdomen and pelvis dated 06/20/2015. Atherosclerotic calcification of the thoracic aorta and its branches is seen. The thoracic aorta is m ildly tortuous but tapers normally. The heart is normal in size. Small calcified left hilar lymph nod e is noted. No mediastinal hematoma is seen. A 7 mm calcified granuloma seen involving the left upper lobe. No area of consolidation is seen. No p neumothorax or pleural effusion is noted. The liver parenchyma has a decreased attenuation consistent with fatty infiltration. The spleen, panc reas, adrenal glands and kidneys are within normal limits. Atherosclerotic calcification abdominal aorta is seen. The abdominal aorta tapers normally. Surgical clips are seen within the gallbladder fossa consistent with cholecystectomy. Free fluid or free air i s seen within the abdomen. There is no evidence of bowel obstruction. Images through the pelvis demonstrate the urinary bladder distended with urine. No free fluid is seen . No pelvic hematoma is noted. Very mild S-shaped curvature of the thoracic and lumbar spine is seen . Degenerative changes are seen involving the thoracic and lumbar spine. The osseous structures are i ntact. IMPRESSION: No acute abnormality is seen. Electronically signed by: Gilbert Saldana MD (07/20/2021 11:59 AM) [id number]
[2021-07-20 12:33] VITALS: BP 153/70
[2021-07-20] MEDS ORDERED: TRAM-48 PO (12:50)
[2021-07-20] MEDS ORDERED: FLUC150T PO (12:50)
[2021-07-20] MEDS ORDERED: CEPH500T PO (12:50)
--- NOTE | 2021-07-20 15:43 | EKG ---
[facility] [address] [place] [address] Test Date: 2021-07-20 Test Time: 09:41:03 Pat Name: EVER FERNANDEZ Department: Room: Gender: F [employer]: : 1955 Requested By: GLORIA BRICE Order Number: [id number] Reading MD: Roosevelt Dove Measurements Intervals [place] Rate: 76 P: 56 RI: 140 QRS: 38 QRSD: 86 T: 37 QT: 366 QTc: 411 Interpretive Statements SINUS RHYTHM Electronically Signed On 07-25-2021 21:53:43 CDT by Roosevelt Dove
== END 2021-07-20 13:07 | disposition home or self-care (01) ==
LOC: ER 08:39
DX: N30.00 Acute cystitis without hematuria (principal); B37.89 Other sites of candidiasis; E11.9 Type 2 diabetes mellitus without complications; I10 Essential (primary) hypertension; Z87.19 Personal history of other diseases of the digestive system; Z88.5 Allergy status to narcotic agent; Z88.6 Allergy status to analgesic agent
CPT/HCPCS: 36415; 71260; 74177; 80053; 81001; 83690; 84484; 85025; 87086; 93005; 96360; 96361; 99285; J7030; Q9967